=== PATIENT | female | born 1950 | race Caucasian/White ===

== ENCOUNTER 2025-02-09 15:49 | Day surgery (SDC) | payer MEDICARE ==
[2025-02-09] MEDS ORDERED: BUPIVACAINE 0.5% VIAL IJ ONE (15:50)
[2025-02-09] MEDS ORDERED: methylPREDNISolone acetate IM ONE (15:50)
[2025-02-09] MEDS ORDERED: LIDOCAINE HCL 1% 50 MG/5 ML VL IJ ONE (15:50)
--- NOTE | 2025-02-09 21:14 | XRAY ---
Indication: Bilateral SI joint injection. Intraoperative fluoroscopy provided for 37 seconds. 2 digital spot image submitted for interpretation demonstrates posterior needle tips projecting over left and right SI joints. Small amount of contrast injected for needle tip placement. Correlate with intraoperative findings/report.
--- NOTE | 2025-02-11 10:13 | XRAY ---
37 seconds of fluoroscopy was used in surgery for a bilateral sacroiliac joint injection.
== END 2025-02-09 18:18 | disposition home or self-care (01) ==
LOC: SDC-PAIN 15:49
PROVIDERS: ATTEND Psychiatry & Neurology Pain Medicine
DX: M46.1 Sacroiliitis, not elsewhere classified (principal); E11.9 Type 2 diabetes mellitus without complications
CPT/HCPCS: 27096; 72202; 82947; J1010; Q9966